=== PATIENT | female | born 1975 | race Caucasian/White ===

== ENCOUNTER 2017-12-08 02:36 | Emergency (ER) | payer OTHER ==
[~2017-12-08] VITALS: Ht 170.2 cm; Wt 129.3 kg
[2017-12-08 02:40] VITALS: BP_SYST 156
--- NOTE | 2017-12-08 02:40 | NUR ---
Patient to ER bed 7 to gown for evaluation. Side rails up.
--- NOTE | 2017-12-08 02:40 | NUR ---
Patient AAOx4, ambulatory. Patient states having a main complaint of rash to face for approximately 1 day prior to ER visit. Patient states she has visited urgent care and an allergenist over the past 7 weeks when she stated she first noticed diffuse rashes to her body. As of today, only rash noted is to face. No swelling of face noted. Patient denies shortness of breath or closing of the throat. Patient denies pain at this time. Patient denies any other complaints.
--- NOTE | 2017-12-08 02:52 | NUR ---
ER Dr. Celaya at bedside examining patient.
[2017-12-08] MEDS ORDERED: DIPHENHYDRAMINE HCL 25 MG CAPSULE PO ONE (03:00)
[2017-12-08] MEDS ORDERED: EPINEPHrine 1 MG/ML AMP SUBCUT ONE (03:00)
[2017-12-08] MEDS ORDERED: MAG-AL HYDROX/SIMETH 30 ML UDC PO ONE (03:45)
[2017-12-08] MEDS ORDERED: LIDOCAINE VISCOUS 2%, 15 ML UDC MM ONE (03:45)
[2017-12-08] MEDS ORDERED: BELLADONNA ALKALOIDS/PHENOBARB 5 ML UDC PO ONE (03:45)
[2017-12-08] MEDS ORDERED: LIDOCAINE VISCOUS 2%, 15 ML UDC ONE (03:50)
[2017-12-08 04:02] VITALS: BP_SYST 147
--- NOTE | 2017-12-08 04:04 | NUR ---
Patient given written and verbal discharge instructions and verbalizes understanding. ER MD discussed with patient the results and treatment provided. Patient in stable condition. ID arm band removed. Rx of prednisone and benadryl given. Patient educated on pain management and to follow up with PMD. Pain Scale 0/10. Opportunity for questions provided and answered. Medication side effect fact sheet provided.
== END 2017-12-08 04:02 | disposition home or self-care (01) ==
LOC: SED 02:36
DX: T78.40XA Allergy, unspecified, initial encounter (principal); R21 Rash and other nonspecific skin eruption; J45.909 Unspecified asthma, uncomplicated; I10 Essential (primary) hypertension; Z90.49 Acquired absence of other specified parts of digestive tract; Z90.710 Acquired absence of both cervix and uterus; X58.XXXA Exposure to other specified factors, initial encounter
CPT/HCPCS: 96372; 99284; J0171; J2001; Q0163